=== PATIENT | male | born 1960 | race Caucasian/White ===

== ENCOUNTER 2018-02-19 13:25 | Emergency (ER) | payer OTHER ==
[~2018-02-19] VITALS: Ht 193 cm; Wt 86.2 kg
[2018-02-19 13:57] LABS: ABSOLUTE NEUTROPHILS 4.8 thou/uL (1.4-8.2); BASOPHILS 0.3 % (0.0-2.0); EOSINOPHILS 1.4 % (0.0-3.0); HEMATOCRIT 43.7 % (42.0-52.0); HEMOGLOBIN 15.4 gm/dL (14.0-18.0); MCH 31.2 pg (26.0-34.0); MCHC 35.3 g/dL (28.0-37.0); MCV 88.2 fL (80.0-100.0); MONOCYTES 9.3 % (1.0-8.0); PLATELET COUNT 126 thou/uL (150-400); RBC 4.96 mil/uL (4.50-6.00); RDW 14.3 % (10.5-14.5); WBC 5.6 thou/uL (4.0-11.0)
[2018-02-19] MEDS ORDERED: LEXAPRO20 MG PO (14:03)
[2018-02-19] MEDS ORDERED: TOPAMAX 25 MG T25 M1 PO (14:04)
[2018-02-19] MEDS ORDERED: VITAMIN D1000 UNI1 PO (14:04)
[2018-02-19] MEDS ORDERED: MULTI VITAMIN1 EACH PO (14:05)
[2018-02-19 14:07] LABS: URINE CLARITY CLEAR; URINE COLOR YELLOW
[2018-02-19] MEDS ORDERED: VITAMIN B-12500 MCG PO (14:08)
[2018-02-19 14:10] LABS: URINE BILIRUBIN NEGATIVE (Negative); URINE BLOOD NEGATIVE (Negative); URINE GLUCOSE-RANDOM* NEGATIVE (Negative); URINE KETONES NEGATIVE (Negative); URINE LEUKOCYTES-REFLEX NEGATIVE (Negative); URINE NITRITE-REFLEX NEGATIVE (Negative); URINE PROTEIN (DIPSTICK) NEGATIVE (Negative); URINE SPECIFIC GRAVITY 1.015 (1.005-1.035); URINE UROBILINOGEN 0.2 E.U./dl (0.2-1.0)
[2018-02-19 14:10] LABS: ANION GAP 4 mmol/L (7-16); BUN 15 mg/dL (7-18); CALCIUM 9.3 mg/dL (8.5-10.1); CHLORIDE 103 mmol/L (98-107); CO2 29 mmol/L (21-32); CREATININE 1.2 mg/dL (0.7-1.3); GLUCOSE 118 mg/dL (74-106); POTASSIUM 5.2 mmol/L (3.5-5.1); PROTIME 10.2 Seconds (9.3-11.4); SODIUM 136 mmol/L (136-145)
[2018-02-19] MEDS ORDERED: VITAMINC500 PO (14:14)
[2018-02-19 14:19] LABS: BE(vivo) -2.3 mmol/L (-2 to +3); HCO3 21.2 mmol/L (22.0-26.0); PCO2 33.5 mmHg (35.0-45.0); PO2 79.5 mmHg (80.0-100.0); sO2 96.1 % (92.0-98.0)
[2018-02-19 14:19] LABS: ALBUMIN 3.9 g/dL (3.4-5.0); SGOT 31 U/L (15-37); SGPT 44 U/L (30-65); TOTAL BILIRUBIN 1.5 mg/dL (<0.1-1.0); TOTAL PROTEIN 7.2 g/dL (6.4-8.2); TROPONIN-I <0.06 ng/mL (<0.06)
[2018-02-19 14:46] VITALS: BP 127/74
[2018-02-19] MEDS ORDERED: PROMETH-CODEIN 65 ML PO (16:03)
[2018-02-19] MEDS ORDERED: AUGMENTIN 500-1 EACH PO (16:03)
--- NOTE | 2018-02-19 16:47 | EKG ---
[address] [place] [address] ELECTROCARDIOGRAM REPORT Name: DEVANFRANNY Room #: JESSENIA Bennett#: [id number] Admission: 02/19/18 Attend Phys: Discharge: 02/19/18 Date of : 64 Report #: [id number] THIS REPORT FOR: //name// [facility] ED Test Date: 2018-02-19 Test Time: 13:39:17 Pat Name: FRANNY HARTMAN Department: Room: Gender: Tyre Fitter: BHARATHI : 1960 Requested By: Anais Lambert Order Number: [id number] MD: Alexis Mckeon Measurements Intervals [place] Rate: 86 P: 46 MN: 178 QRS: -24 QRSD: 101 T: 50 QT: 378 QTc: 452 Interpretive Statements Sinus rhythm Borderline left axis deviation RSR' in V1 or V2, probably normal variant No previous ECG available for comparison Electronically Signed On 02-19-2018 16:47:06 GAS TECHNICIAN by Alexis Mckeon [email or web address] <ELECTRONICALLY SIGNED> By: Alexis Mckeon MD, [facility] 02/19/18 [id number] [id number] Alexis Mckeon MD, FACC /EPI
== END 2018-02-19 16:22 | disposition home or self-care (01) ==
LOC: ER 13:25
PROVIDERS: Physician Assistant
DX: J98.01 Acute bronchospasm (principal); R55 Syncope and collapse; Z85.72 Personal history of non-Hodgkin lymphomas; W19.XXXA Unspecified fall, initial encounter; Y93.89 Activity, other specified; Y92.89 Other specified places as the place of occurrence of the external cause; Y99.8 Other external cause status